=== PATIENT | female | born 1950 | race African-American/Black ===

== ENCOUNTER 2025-01-01 21:45 | Inpatient (IN) | payer MEDICARE ==
[2025-01-01 23:58] LABS: Hematocrit 25.1 % (36.0-47.0); Hemoglobin 7.2 g/dL (12.0-16.0); Mean Corpuscular Hemoglobin 31.3 pg (27.0-31.0); Mean Corpuscular Volume 109.1 fL (78.0-98.0); Platelet Count 183 10x3/uL (130-400); Red Blood Cell (RBC) Count 2.30 mill/uL (4.20-5.40); White Blood Cell (WBC) Count 9.87 10x3/uL (4.8-10.8)
[2025-01-02 00:18] LABS: Anisocytosis SLIGHT = 6-15 cells HPF (0-5); Burr Cells SLIGHT = 2-5 cells HPF (0-1); Macrocytosis SLIGHT = 6-15 cells HPF (0-5); Platelet Adequacy Comment Platelets Normal; Poikilocytosis SLIGHT = 6-15 cells HPF (0-5); Smudge Cells 0.9 %
[2025-01-02 00:26] LABS: ALT (SGPT) 73 U/L (Less than 34); AST (SGOT) 153 U/L (11-34); Albumin 1.7 g/dL (3.1-4.5); Alkaline Phosphatase 116 U/L (40-110); Anion Gap 16 mmol/L (10-20); BUN (Urea Nitrogen) 53 mg/dL (9.8-20.1); Bilirubin, Total 1.4 mg/dL (0.3-1.2); Calc. Creatinine Clearance 0 mL/min (70-130); Calcium 6.8 mg/dL (7.8-10.44); Carbon Dioxide 23 mmol/L (23-31); Chloride 110 mmol/L (98-107); Globulin 2.5 g/dL (2.4-3.5); Glucose 549 mg/dL (83-110); Magnesium 1.7 mg/dL (1.6-2.6); Potassium 2.4 mmol/L (3.5-5.1); Sodium 147 mmol/L (136-145)
[2025-01-02] MEDS ORDERED: Electrolyte Replacement Protocol 1 EACH IVPB PRN (01:42)
[2025-01-02] MEDS ORDERED: Acetaminophen 325 MG (10.15 ML) UDCUP PO PRN (01:42)
[2025-01-02] MEDS ORDERED: Calcium Carbonate 500 MG ChewTAB PO PRN (01:43)
[2025-01-02] MEDS ORDERED: Ondansetron PF 4 MG/2 ML Vial IVP PRN (01:43)
[2025-01-02] MEDS ORDERED: Acetaminophen 325 MG TAB PO PRN (01:43)
[2025-01-02] MEDS ORDERED: NOREPINEPHRINE 8 MG/250 ML-D5W 250 ML IVPB SCH (02:00)
[2025-01-02 02:02] VITALS: BMI 15.0
[2025-01-02] MEDS ORDERED: Dextrose 50% Abboject 50 ML SYRINGE SLOW IVP PRN (02:32)
[2025-01-02] MEDS ORDERED: Glucagon 1 MG/ML KIT IM PRN (02:32)
[2025-01-02] MEDS: Magnesium 2 GM/50 ML(in water) 2 GM in Premix 1 BAG IVPB SCH (03:26)
[2025-01-02] MEDS: NOREPINEPHRINE 8 MG/250 ML-D5W 250 ML IVPB PRN (03:26)
[2025-01-02] MEDS: Potassium Chloride 40 MEQ in Premix 1 BAG IVPB SCH ×2 (03:36→08:01)
[2025-01-02 05:38] LABS: Hematocrit 28.4 % (36.0-47.0); Hemoglobin 7.8 g/dL (12.0-16.0); Mean Corpuscular Hemoglobin 30.4 pg (27.0-31.0); Mean Corpuscular Volume 110.5 fL (78.0-98.0); Platelet Count 197 10x3/uL (130-400); Red Blood Cell (RBC) Count 2.57 mill/uL (4.20-5.40); White Blood Cell (WBC) Count 9.36 10x3/uL (4.8-10.8)
[2025-01-02 05:41] LABS: ALT (SGPT) 82 U/L (Less than 34); AST (SGOT) 185 U/L (11-34); Albumin 1.8 g/dL (3.1-4.5); Alkaline Phosphatase 121 U/L (40-110); Anion Gap 16 mmol/L (10-20); BUN (Urea Nitrogen) 56 mg/dL (9.8-20.1); Bilirubin, Total 1.4 mg/dL (0.3-1.2); Calc. Creatinine Clearance 21 mL/min (70-130); Calcium 7.2 mg/dL (7.8-10.44); Carbon Dioxide 23 mmol/L (23-31); Chloride 109 mmol/L (98-107); Globulin 2.7 g/dL (2.4-3.5); Glucose 521 mg/dL (83-110); Potassium 2.7 mmol/L (3.5-5.1); Sodium 145 mmol/L (136-145)
[2025-01-02 07:14] LABS: Anisocytosis SLIGHT = 6-15 cells HPF (0-5); Dohle Bodies SLIGHT; Macrocytosis SLIGHT = 6-15 cells HPF (0-5); Platelet Adequacy Comment Platelets Normal; Poikilocytosis SLIGHT = 6-15 cells HPF (0-5); Polychromasia SLIGHT = 2-3 cells HPF (0-2); Reflex for Review?? YES; Schistocytes SLIGHT = 2-5 cells HPF (0-1); Smudge Cells 2.7 %
[2025-01-02 08:20] VITALS: TEMP 91.9
[2025-01-02 10:54] VITALS: BMI 15.0
== END 2025-01-02 12:36 | disposition expired | DRG 871 ==
LOC: ERS 21:45 → CCU 01-02 00:38
PROVIDERS: ADMIT Student in an Organized Health Care Education/Training Program; ATTEND Hospitalist
PROC: 3E03329 Introduction of Other Anti-infective into Peripheral Vein, Percutaneous Approach (ICD-10-PCS; principal; 2025-01-02)
PROC: 3E033XZ Introduction of Vasopressor into Peripheral Vein, Percutaneous Approach (ICD-10-PCS; 2025-01-02)
PROC: 02HV33Z Insertion of Infusion Device into Superior Vena Cava, Percutaneous Approach (ICD-10-PCS; 2025-01-02)
PROC: B548ZZA Ultrasonography of Superior Vena Cava, Guidance (ICD-10-PCS; 2025-01-02)
PROC: 3E043XZ Introduction of Vasopressor into Central Vein, Percutaneous Approach (ICD-10-PCS; 2025-01-02)
PROC: 3E04329 Introduction of Other Anti-infective into Central Vein, Percutaneous Approach (ICD-10-PCS; 2025-01-02)
DX: A41.9 Sepsis, unspecified organism (principal); G93.41 Metabolic encephalopathy; L89.153 Pressure ulcer of sacral region, stage 3; R65.21 Severe sepsis with septic shock; J96.01 Acute respiratory failure with hypoxia; K72.00 Acute and subacute hepatic failure without coma; J18.9 Pneumonia, unspecified organism; N17.9 Acute kidney failure, unspecified; E87.21 Acute metabolic acidosis; E87.0 Hyperosmolality and hypernatremia; R64 Cachexia; Z68.1 Body mass index [BMI] 19.9 or less, adult; Z66 Do not resuscitate; Z51.5 Encounter for palliative care; R62.7 Adult failure to thrive; R54 Age-related physical debility; E78.5 Hyperlipidemia, unspecified; E87.6 Hypokalemia; E11.65 Type 2 diabetes mellitus with hyperglycemia; E88.09 Other disorders of plasma-protein metabolism, not elsewhere classified; I12.9 Hypertensive chronic kidney disease with stage 1 through stage 4 chronic kidney disease, or unspecified chronic kidney disease; E11.22 Type 2 diabetes mellitus with diabetic chronic kidney disease; N18.9 Chronic kidney disease, unspecified; Z90.710 Acquired absence of both cervix and uterus; Z79.4 Long term (current) use of insulin; D53.9 Nutritional anemia, unspecified; M62.50 Muscle wasting and atrophy, not elsewhere classified, unspecified site
CPT/HCPCS: 36415; 36416; 36556; 71045; 80053; 83605; 83735; 85025; 85060; 96374; J1815; J2060; J2270; J2543; J3475; J3480; J7120